=== PATIENT | female | born 2000 | race African-American/Black ===

== ENCOUNTER 2023-02-19 18:43 | Emergency (ER) | payer OTHER ==
[2023-02-19 19:29] VITALS: BP 142/82; O2SAT 100
--- NOTE | 2023-02-19 20:55 | ED Physician Documentation ---
History of Present Illness - Stated complaint Stated Complaint: ALLERGIC REACTION - Chief complaint Chief Complaint: Allergic Rx - History obtained from History obtained from: Patient - History of Present Illness Timing: Today Pain level max: 0 Pain level now: 0 - Additonal information Additional information: Patient is a 23-year-old female who presents to the emergency department stadium that she made a homemade "chipotle bowl". She states that after eating, she developed hives, itching and felt like her face was swelling. No difficulty speaking or swallowing. No trouble breathing.She states that her symptoms of now resolved, and she feels back to normal. She does not have any history of allergic reactions. Does not have any substances that she is aware of that she is allergic to. She has eaten the same meal previously without incident. Patient denies any possibility of . She did not take any medications prior to arrival. She is not on any medications at home. Review of Systems Constitutional: denies: Fever GI: denies: Vomiting : denies: Now [facility] PAST MEDICAL HISTORY - Past Medical History Past Medical History: No Cardiovascular: None Respiratory: None Neuro: None Endocrine/Autoimmune: None GI: None OVERSEAMER: None : None HEENT: None Psych: None Musculoskeletal: None Derm: None - Past Surgical History Past Surgical History: No - Allergies Allergies/Adverse Reactions: Allergies Allergy/AdvReac Type Severity Reaction Status Date / Time No Known Drug Allergies Allergy Verified 02/19/23 18:46 - Social History Does the pt smoke?: No Smoking Status: Never smoker Does the pt drink ETOH?: No Does the pt have substance abuse?: No - Immunizations Immunizations are current?: Yes PD ED PE NORMAL - Vitals Vital signs reviewed: Yes - General General: Alert and oriented X 3, No acute distress - HEENT HEENT: PERRL, Moist mucous membranes, Pharynx benign - Neck Neck: Supple, no meningeal sign - Cardiac Cardiac: RRR - Respiratory Respiratory: No respiratory distress, Clear bilaterally, Other (No stridor or wheezing) - Abdomen Abdomen: Soft, Non tender, Non distended - Derm Derm: Warm and dry, No rash - Extremities Extremities: No edema - Neuro Neuro: Alert and oriented X 3 - Psych Psych: Normal mood, Normal affect Results - Vitals Vitals: Vital Signs - 24 hr 02/19/23 02/19/23 18:46 19:27 Temperature 37.6 C 37 C Heart Rate 100 89 Respiratory 16 18 Rate Blood Pressure 130/82 H 142/82 H O2 Saturation 98 100 Oxygen O2 Source Room air PD Medical Decision Making - ED course Complexity details: considered differential, d/w patient ED course: Patient with what sounds like an allergic reaction earlier today. She is fully asymptomatic here. No urticaria. Normal phonation. No trismus. No stridor. No wheezing. Unfair ideology of her symptoms, but given that her symptoms do sound like an allergic reaction, a dose of prednisone was given to the patient here. We will have her follow up with her primary care provider for further care and return if she worsens. Patient counseled regarding signs and symptoms for which I believe and urgent re-evaluation would be necessary. Patient with good understanding of and agreement to plan and is comfortable going home at this time. This document was made in part using voice recognition software. While efforts are made to proofread this document, sound alike and grammatical errors may occur. Departure - Departure Disposition: 01 Home, Self Care Clinical Impression: Allergic reaction Qualifiers: Encounter type: initial encounter Qualified Code(s): T78.40XA - Allergy, unspecified, initial encounter Condition: Good Instructions: ED Allergic Reaction General Other Follow-Up: your,doctor in 1 week [Other] Comments: You were given a dose of prednisone today. It appears that you did have an allergic reaction but your symptoms have resolved. It is unclear what you are allergic to. Please follow-up with your doctor for further care. Forms: PCP List Discharge Date/Time: 02/19/23 21:24
[2023-02-19] MEDS ORDERED: predniSONE 20 MG TABLET PO STA (21:01)
== END 2023-02-19 21:24 | disposition home or self-care (01) ==
LOC: ED 18:43
DX: T78.40XA Allergy, unspecified, initial encounter (principal)
CPT/HCPCS: 99282; 99283; J7512